=== PATIENT | male | born 1960 | race Two or more races ===

== ENCOUNTER → 2020-01-10 07:11 | Outpatient (CLI) | payer OTHER ==
[~2020-01-10 07:11] MED LIST: CIPRO500 MG PO; GLIPIZIDE5 MG; JANUVIA100 MG; VASOTEC2.5 MG
== END | disposition home or self-care (01) ==
LOC: LAB 07:11
PROVIDERS: ATTEND Internal Medicine Hematology & Oncology
DX: D55.0 Anemia due to glucose-6-phosphate dehydrogenase [G6PD] deficiency (principal); D50.8 Other iron deficiency anemias; D51.1 Vitamin B12 deficiency anemia due to selective vitamin B12 malabsorption with proteinuria; D51.0 Vitamin B12 deficiency anemia due to intrinsic factor deficiency; E06.3 Autoimmune thyroiditis; R97.0 Elevated carcinoembryonic antigen [CEA]; R97.8 Other abnormal tumor markers; R97.20 Elevated prostate specific antigen [PSA]; B20 Human immunodeficiency virus [HIV] disease; B17.8 Other specified acute viral hepatitis; Z11.59 Encounter for screening for other viral diseases; D69.49 Other primary thrombocytopenia; M06.89 Other specified rheumatoid arthritis, multiple sites; I10 Essential (primary) hypertension; E11.9 Type 2 diabetes mellitus without complications; D51.3 Other dietary vitamin B12 deficiency anemia

== ENCOUNTER 2020-04-24 07:22 | Outpatient (CLI) | payer OTHER | END 2020-04-24 15:00 | disposition home or self-care (01) | LOC: LAB 07:22 | PROVIDERS: ATTEND Internal Medicine Hematology & Oncology | DX: D50.8 Other iron deficiency anemias (principal); I10 Essential (primary) hypertension; D51.8 Other vitamin B12 deficiency anemias; R97.0 Elevated carcinoembryonic antigen [CEA]; R97.8 Other abnormal tumor markers; D51.0 Vitamin B12 deficiency anemia due to intrinsic factor deficiency; D57.3 Sickle-cell trait; D51.1 Vitamin B12 deficiency anemia due to selective vitamin B12 malabsorption with proteinuria; E11.9 Type 2 diabetes mellitus without complications; M06.89 Other specified rheumatoid arthritis, multiple sites; D69.49 Other primary thrombocytopenia ==

== ENCOUNTER → 2020-06-26 07:08 | Outpatient (CLI) | payer OTHER | END | disposition home or self-care (01) | LOC: LAB 07:08 | PROVIDERS: ATTEND Internal Medicine Hematology & Oncology | DX: D50.8 Other iron deficiency anemias (principal); D51.0 Vitamin B12 deficiency anemia due to intrinsic factor deficiency; I10 Essential (primary) hypertension; D51.1 Vitamin B12 deficiency anemia due to selective vitamin B12 malabsorption with proteinuria; D57.3 Sickle-cell trait; D69.6 Thrombocytopenia, unspecified; M06.9 Rheumatoid arthritis, unspecified; E11.9 Type 2 diabetes mellitus without complications ==

== ENCOUNTER → 2020-07-24 07:47 | Outpatient (CLI) | payer OTHER | END | disposition home or self-care (01) | LOC: LAB 07:47 | PROVIDERS: ATTEND Internal Medicine Geriatric Medicine | DX: D50.8 Other iron deficiency anemias (principal); E03.8 Other specified hypothyroidism; I11.9 Hypertensive heart disease without heart failure; E56.8 Deficiency of other vitamins; N39.0 Urinary tract infection, site not specified; Z12.11 Encounter for screening for malignant neoplasm of colon; E55.9 Vitamin D deficiency, unspecified; N19 Unspecified kidney failure; R80.8 Other proteinuria; C18.0 Malignant neoplasm of cecum; K92.1 Melena; I10 Essential (primary) hypertension; E11.65 Type 2 diabetes mellitus with hyperglycemia; E78.49 Other hyperlipidemia; N40.0 Benign prostatic hyperplasia without lower urinary tract symptoms; R35.8 Other polyuria ==

== ENCOUNTER 2020-10-23 08:11 | Outpatient (CLI) | payer OTHER | END 2020-10-23 08:20 | disposition home or self-care (01) | LOC: LAB 08:11 | PROVIDERS: ATTEND Internal Medicine Hematology & Oncology | DX: I10 Essential (primary) hypertension (principal); R74.02 Elevation of levels of lactic acid dehydrogenase [LDH]; K76.89 Other specified diseases of liver; D50.8 Other iron deficiency anemias; R97.0 Elevated carcinoembryonic antigen [CEA]; R97.8 Other abnormal tumor markers; D51.1 Vitamin B12 deficiency anemia due to selective vitamin B12 malabsorption with proteinuria; D51.0 Vitamin B12 deficiency anemia due to intrinsic factor deficiency; D57.3 Sickle-cell trait; D69.6 Thrombocytopenia, unspecified; E11.9 Type 2 diabetes mellitus without complications; R79.89 Other specified abnormal findings of blood chemistry; C25.7 Malignant neoplasm of other parts of pancreas; E03.8 Other specified hypothyroidism ==

== ENCOUNTER 2021-03-26 07:55 | Outpatient (CLI) | payer OTHER | END 2021-03-26 08:09 | disposition home or self-care (01) | LOC: LAB 07:55 | PROVIDERS: ATTEND Internal Medicine Hematology & Oncology | DX: D50.8 Other iron deficiency anemias (principal); R79.89 Other specified abnormal findings of blood chemistry; I10 Essential (primary) hypertension; R74.02 Elevation of levels of lactic acid dehydrogenase [LDH]; K76.89 Other specified diseases of liver; E03.8 Other specified hypothyroidism; C25.9 Malignant neoplasm of pancreas, unspecified; R97.8 Other abnormal tumor markers; R97.0 Elevated carcinoembryonic antigen [CEA]; E55.9 Vitamin D deficiency, unspecified; D51.0 Vitamin B12 deficiency anemia due to intrinsic factor deficiency; D51.1 Vitamin B12 deficiency anemia due to selective vitamin B12 malabsorption with proteinuria; D57.3 Sickle-cell trait; D69.6 Thrombocytopenia, unspecified; M06.9 Rheumatoid arthritis, unspecified; E11.9 Type 2 diabetes mellitus without complications ==

== ENCOUNTER 2021-09-10 07:28 | Outpatient (CLI) | payer OTHER | END 2021-09-10 07:39 | disposition home or self-care (01) | LOC: LAB 07:28 | PROVIDERS: ATTEND Internal Medicine Hematology & Oncology | DX: D50.8 Other iron deficiency anemias (principal); R79.89 Other specified abnormal findings of blood chemistry; I10 Essential (primary) hypertension; R74.02 Elevation of levels of lactic acid dehydrogenase [LDH]; K76.89 Other specified diseases of liver; E55.9 Vitamin D deficiency, unspecified; E03.8 Other specified hypothyroidism; R97.0 Elevated carcinoembryonic antigen [CEA]; R97.8 Other abnormal tumor markers; R97.20 Elevated prostate specific antigen [PSA]; D51.0 Vitamin B12 deficiency anemia due to intrinsic factor deficiency; D51.1 Vitamin B12 deficiency anemia due to selective vitamin B12 malabsorption with proteinuria; D57.3 Sickle-cell trait; D69.49 Other primary thrombocytopenia; E11.9 Type 2 diabetes mellitus without complications ==

== ENCOUNTER 2022-01-07 07:04 | Outpatient (CLI) | payer OTHER | END 2022-01-07 07:21 | disposition home or self-care (01) | LOC: LAB 07:04 | PROVIDERS: ATTEND Internal Medicine Hematology & Oncology | DX: D50.8 Other iron deficiency anemias (principal); R79.9 Abnormal finding of blood chemistry, unspecified; I10 Essential (primary) hypertension; R74.02 Elevation of levels of lactic acid dehydrogenase [LDH]; K76.89 Other specified diseases of liver; E55.9 Vitamin D deficiency, unspecified; E03.8 Other specified hypothyroidism; R97.0 Elevated carcinoembryonic antigen [CEA]; R97.8 Other abnormal tumor markers; R97.20 Elevated prostate specific antigen [PSA]; E21.0 Primary hyperparathyroidism; E83.52 Hypercalcemia ==

== ENCOUNTER 2022-04-28 06:48 | Outpatient (CLI) | payer OTHER | END 2022-04-28 06:55 | disposition home or self-care (01) | LOC: LAB 06:48 | PROVIDERS: ATTEND Internal Medicine Hematology & Oncology | DX: D50.8 Other iron deficiency anemias (principal); R79.9 Abnormal finding of blood chemistry, unspecified; I10 Essential (primary) hypertension; R74.02 Elevation of levels of lactic acid dehydrogenase [LDH]; K76.89 Other specified diseases of liver; R97.0 Elevated carcinoembryonic antigen [CEA]; R97.20 Elevated prostate specific antigen [PSA] ==

== ENCOUNTER → 2023-03-17 07:19 | Outpatient (CLI) | payer OTHER | END | disposition home or self-care (01) | LOC: LAB 07:19 | PROVIDERS: ATTEND Internal Medicine Hematology & Oncology | DX: D50.8 Other iron deficiency anemias (principal); R79.9 Abnormal finding of blood chemistry, unspecified; I10 Essential (primary) hypertension; R74.02 Elevation of levels of lactic acid dehydrogenase [LDH]; K76.89 Other specified diseases of liver; E55.9 Vitamin D deficiency, unspecified; R97.0 Elevated carcinoembryonic antigen [CEA]; R97.8 Other abnormal tumor markers; R97.20 Elevated prostate specific antigen [PSA]; C61 Malignant neoplasm of prostate; D51.0 Vitamin B12 deficiency anemia due to intrinsic factor deficiency; D51.1 Vitamin B12 deficiency anemia due to selective vitamin B12 malabsorption with proteinuria; D57.3 Sickle-cell trait; D69.6 Thrombocytopenia, unspecified; M06.9 Rheumatoid arthritis, unspecified; E11.9 Type 2 diabetes mellitus without complications ==

== ENCOUNTER 2023-11-24 07:51 | Outpatient (CLI) | payer OTHER ==
[2023-11-24 09:46] LABS: PH,URINE 6.5 (5.0-8.0); URINE APPEARANCE Clear; URINE BILIRRUBIN Negative (NEGATIVE); URINE BLOOD Negative; URINE COLOR Yellow; URINE GLUCOSE Negative (NEGATIVE); URINE LEUKOCYTE Negative; URINE NITRATE Negative; URINE PROTEIN Negative (NEGATIVE); URINE UROBILINOGEN 0.2 E.U./dl
[2023-11-24 09:50] LABS: URINE RBC 2.1 uL (0.0-20.8); URINE WBC 2.6 uL (0.0-23.2)
[2023-11-24 09:59] LABS: HEMATOCRIT 39.8 % (39.0-48.0); HEMOGLOBIN 13.3 g/dL (13-16.00); MEAN CELL VOLUME 89.5 fL (80.0-100.00); MEAN CORPUSCULAR HEMOGLOBIN 29.9 pg (27.00-32.0); MEAN CORPUSCULAR HGB CONC 33.4 g/dl (32.0-36.0); PLATELET COUNT 150 K/uL (150-450); RED BLOOD COUNT 4.45 M/uL (4.00-6.00); RED CELL DISTRIBUTION WIDTH 14.1 % (11.5-14.5)
[2023-11-24 10:05] LABS: URINE BACTERIA 3.7 uL (0.0-1933); URINE EPITHELIAL CELLS 0.4 uL (0.0-38.8)
[2023-11-24 10:36] LABS: ALBUMIN 4.3 gm/dL (3.4-5.0); ALKALINE PHOSPHATASE 77 U/L (50-136); ALT/SGPT 33 U/L (12-78); ANION GAP 6 (10.0-20.0); AST/SGOT 25 U/L (15-37); BILIRUBIN TOTAL 0.53 mg/dL (0.3-1.2); BLOOD UREA NITROGEN 13 mg/dL (7-18); BUN CREA RATIO 15 (7.0-25.0); CALCIUM 9.6 mg/dL (8.5-10.1); CARBON DIOXIDE 34 mEq/L (21-32); CHLORIDE 108 mmol/L (98-107); CHOL HDL RATIO 1.8 (0-5.0); CHOLESTEROL 113 mg/dL (0-200); CREATININE SERUM 0.84 mg/dL (0.70-1.30); FERRITIN 35.9 NG/ML (26-388); GFR 92.89; GLOBULINA 2.9 G/DL (2.4-3.5); GLUCOSE FASTING 139 mg/dL (65-100); HDL 62 mg/dl (40-60); LDH 224 U/L (87-241); LDL 43 mg/dl (0-130); OSMOLALITY SERUM 289 MOSM/KG (275-295); POTASSIUM 3.88 mEq/L (3.5-5.1); SODIUM 144 mmol/L (136-145); TOTAL IRON BINDING CAPACITY 350 ug/dl (250-450); TOTAL PROTEIN 7.2 gm/dL (6.4-8.2); TRIGLYCERIDES 41 mg/dL (0-150); VLDL 8 (0-39)
[2023-11-24 10:39] LABS: PROSTATIC SPECIFIC ANTIGEN < 0.010 NG/ML (0.010-4.00)
[2023-11-25 12:18] LABS: FOLIC ACID > 20.00 ng/ml (4.78-20); VITAMIN D3 25 HYDROXY 39.79 ng/ml (30-120)
[2023-11-26 11:27] LABS: MANUAL PLATELET COUNT 336
[2023-11-26 11:28] LABS: PLATELET ESTIMATE NORMAL (NORMAL)
== END 2023-11-24 08:08 | disposition home or self-care (01) ==
LOC: LAB 07:51
PROVIDERS: ATTEND Internal Medicine Hematology & Oncology
DX: C61 Malignant neoplasm of prostate (principal); D51.0 Vitamin B12 deficiency anemia due to intrinsic factor deficiency; D51.1 Vitamin B12 deficiency anemia due to selective vitamin B12 malabsorption with proteinuria; D57.3 Sickle-cell trait; D69.6 Thrombocytopenia, unspecified; M06.9 Rheumatoid arthritis, unspecified; I10 Essential (primary) hypertension; E11.9 Type 2 diabetes mellitus without complications; R97.0 Elevated carcinoembryonic antigen [CEA]; E55.9 Vitamin D deficiency, unspecified; R79.9 Abnormal finding of blood chemistry, unspecified; K76.89 Other specified diseases of liver; D50.8 Other iron deficiency anemias

== ENCOUNTER 2024-04-26 07:03 | Outpatient (CLI) | payer OTHER ==
[2024-04-26] MEDS ORDERED: HUMALOG100 UNIT/2 (08:01)
[2024-04-26 08:10] LABS: PH,URINE 5.5 (5.0-8.0); URINE APPEARANCE Clear; URINE BILIRRUBIN Negative (NEGATIVE); URINE BLOOD Negative; URINE COLOR Yellow; URINE GLUCOSE Negative (NEGATIVE); URINE KETONE 15 (NEGATIVE); URINE LEUKOCYTE Negative; URINE NITRATE Negative; URINE PROTEIN Trace (NEGATIVE); URINE UROBILINOGEN 0.2 E.U./dl
[2024-04-26 08:14] LABS: URINE BACTERIA 7.5 uL (0.0-1933); URINE EPITHELIAL CELLS 2.4 uL (0.0-38.8); URINE RBC 2.9 uL (0.0-20.8); URINE WBC 3.3 uL (0.0-23.2)
[2024-04-26 08:24] LABS: HEMATOCRIT 36.5 % (39.0-48.0); HEMOGLOBIN 12.5 g/dL (13-16.00); MEAN CORPUSCULAR HEMOGLOBIN 30.2 pg (27.00-32.0); MEAN CORPUSCULAR HGB CONC 34.3 g/dl (32.0-36.0); PLATELET COUNT 131 K/uL (150-450); RED BLOOD COUNT 4.15 M/uL (4.00-6.00); RED CELL DISTRIBUTION WIDTH 14.2 % (11.5-14.5)
[2024-04-26 09:14] LABS: ALBUMIN 3.9 gm/dL (3.4-5.0); ALKALINE PHOSPHATASE 81 U/L (50-136); ALT/SGPT 24 U/L (12-78); ANION GAP 9 (10.0-20.0); AST/SGOT 13 U/L (15-37); BILIRUBIN TOTAL 0.54 mg/dL (0.3-1.2); BLOOD UREA NITROGEN 13 mg/dL (7-18); BUN CREA RATIO 17 (7.0-25.0); CALCIUM 9.1 mg/dL (8.5-10.1); CARBON DIOXIDE 29 mEq/L (21-32); CHLORIDE 108 mmol/L (98-107); CHOL HDL RATIO 2.3 (0-5.0); CHOLESTEROL 133 mg/dL (0-200); CREATININE SERUM 0.76 mg/dL (0.70-1.30); FERRITIN 57.9 NG/ML (26-388); GFR 104.27; GLOBULINA 3.2 G/DL (2.4-3.5); HDL 58 mg/dl (40-60); LDL 66 mg/dl (0-130); POTASSIUM 4.07 mEq/L (3.5-5.1); SODIUM 142 mmol/L (136-145); TOTAL IRON BINDING CAPACITY 288 ug/dl (250-450); TOTAL PROTEIN 7.1 gm/dL (6.4-8.2); TRIGLYCERIDES 44 mg/dL (0-150); VLDL 8 (0-39)
[2024-04-26 09:15] LABS: GLUCOSE FASTING 207 mg/dL (65-100); OSMOLALITY SERUM 289 MOSM/KG (275-295); PROSTATIC SPECIFIC ANTIGEN < 0.010 NG/ML (0.010-4.00)
[2024-04-28 10:25] LABS: MANUAL PLATELET COUNT 256
[2024-04-28 10:27] LABS: PLATELET ESTIMATE NORMAL (NORMAL)
[2024-04-28 12:17] LABS: FOLIC ACID 19.58 ng/ml (4.78-20); VITAMIN D3 25 HYDROXY 32.72 ng/ml (30-120)
== END 2024-04-26 07:13 | disposition home or self-care (01) ==
LOC: LAB 07:03
PROVIDERS: ATTEND Internal Medicine Hematology & Oncology
DX: D50.9 Iron deficiency anemia, unspecified (principal); E03.9 Hypothyroidism, unspecified; E78.2 Mixed hyperlipidemia; I11.9 Hypertensive heart disease without heart failure; E56.8 Deficiency of other vitamins; N39.0 Urinary tract infection, site not specified; Z12.11 Encounter for screening for malignant neoplasm of colon; R19.5 Other fecal abnormalities; E55.9 Vitamin D deficiency, unspecified; N19 Unspecified kidney failure; E11.9 Type 2 diabetes mellitus without complications; C61 Malignant neoplasm of prostate; D51.0 Vitamin B12 deficiency anemia due to intrinsic factor deficiency; D51.1 Vitamin B12 deficiency anemia due to selective vitamin B12 malabsorption with proteinuria; D57.3 Sickle-cell trait; D69.6 Thrombocytopenia, unspecified; M06.9 Rheumatoid arthritis, unspecified; I10 Essential (primary) hypertension; R97.0 Elevated carcinoembryonic antigen [CEA]; D50.8 Other iron deficiency anemias; R74.02 Elevation of levels of lactic acid dehydrogenase [LDH]; K76.89 Other specified diseases of liver

== ENCOUNTER 2024-04-26 07:51 | Emergency (ER) | payer OTHER ==
[~2024-04-26] VITALS: Ht 185.4 cm; Wt 64.9 kg
[2024-04-26] MEDS ORDERED: HUMALOG100 UNIT/2 (08:01)
== END 2024-04-26 12:37 | disposition home or self-care (01) ==
LOC: ER 07:52
DX: S90.121A Contusion of right lesser toe(s) without damage to nail, initial encounter (principal); X58.XXXA Exposure to other specified factors, initial encounter; Y93.89 Activity, other specified; Y92.89 Other specified places as the place of occurrence of the external cause; Y99.9 Unspecified external cause status; E11.9 Type 2 diabetes mellitus without complications; Z79.4 Long term (current) use of insulin; Z88.0 Allergy status to penicillin; Z85.46 Personal history of malignant neoplasm of prostate

== ENCOUNTER 2024-08-30 17:19 | Emergency (ER) | payer OTHER ==
[~2024-08-30] VITALS: Ht 182.9 cm; Wt 65.3 kg
[~2024-08-30 17:19] MED LIST changes: +HUMALOG100 UNIT/2
[2024-08-30] MEDS ORDERED: LANTUS SOL100 UNIT/1 SQ (18:19)
[2024-08-30 19:48] LABS: HEMOGLOBIN 12.7 g/dL (13-16.00); MEAN CELL VOLUME 89.5 fL (80.0-100.00); MEAN CORPUSCULAR HEMOGLOBIN 29.9 pg (27.00-32.0); MEAN CORPUSCULAR HGB CONC 33.5 g/dl (32.0-36.0); PLATELET COUNT 206 K/uL (150-450); RED BLOOD COUNT 4.25 M/uL (4.00-6.00)
[2024-08-30 20:12] LABS: ALBUMIN 3.7 gm/dL (3.4-5.0); BILIRUBIN TOTAL 0.4 mg/dL (0.3-1.2); CALCIUM 9.3 mg/dL (8.5-10.1); CREATININE SERUM 0.92 mg/dL (0.70-1.30); GFR 83.36; GLOBULINA 3.3 G/DL (2.4-3.5); POTASSIUM 4.99 mEq/L (3.5-5.1)
[2024-08-30] MEDS ORDERED: DEXAMETHASONE SODIUM PHOSPHATE 4 MG/ML VIAL IM STA (20:29)
[2024-08-30] MEDS ORDERED: DEXAMETHASONE SODIUM PHOSPHATE 4 MG/ML VIAL ONE (20:32)
[2024-08-30] MEDS ORDERED: KETOROLAC TROMETHAMINE 60 MG VIAL IM ONE (20:33)
== END 2024-08-30 20:47 ==
LOC: ER 17:21
PROVIDERS: General Practice
DX: E11.649 Type 2 diabetes mellitus with hypoglycemia without coma (principal); Z79.4 Long term (current) use of insulin; I10 Essential (primary) hypertension; Z88.0 Allergy status to penicillin; Z85.46 Personal history of malignant neoplasm of prostate

== ENCOUNTER 2024-12-13 09:30 | Outpatient (CLI) | payer OTHER ==
[~2024-12-13 09:30] MED LIST changes: +LANTUS SOL100 UNIT/1 SQ
[2024-12-13 10:38] LABS: HEMATOCRIT 39.1 % (39.0-48.0); HEMOGLOBIN 12.9 g/dL (13-16.00); MEAN CELL VOLUME 89.9 fL (80.0-100.00); MEAN CORPUSCULAR HEMOGLOBIN 29.8 pg (27.00-32.0); MEAN CORPUSCULAR HGB CONC 33.1 g/dl (32.0-36.0); PLATELET COUNT 156 K/uL (150-450); RED BLOOD COUNT 4.35 M/uL (4.00-6.00); RED CELL DISTRIBUTION WIDTH 13.9 % (11.5-14.5)
[2024-12-13 10:46] LABS: URINE APPEARANCE Clear; URINE BILIRRUBIN Negative (NEGATIVE); URINE BLOOD Negative; URINE COLOR Yellow; URINE GLUCOSE Negative (NEGATIVE); URINE KETONE Negative (NEGATIVE); URINE LEUKOCYTE Negative; URINE NITRATE Negative; URINE PROTEIN Negative (NEGATIVE); URINE UROBILINOGEN 0.2 E.U./dl
[2024-12-13 11:20] LABS: URINE BACTERIA 1.2 uL (0.0-1933); URINE EPITHELIAL CELLS 0.4 uL (0.0-38.8); URINE RBC 1.4 uL (0.0-20.8)
[2024-12-13 11:26] LABS: BILIRUBIN TOTAL 0.48 mg/dL (0.3-1.2); CALCIUM 9.3 mg/dL (8.5-10.1); CHOL HDL RATIO 2.9 (0-5.0); CREATININE SERUM 0.68 mg/dL (0.70-1.30); GFR 118.16; GLOBULINA 2.9 G/DL (2.4-3.5); POTASSIUM 4.71 mEq/L (3.5-5.1); TOTAL PROTEIN 6.9 gm/dL (6.4-8.2); TSH 1.57 uIU/mL (0.358-3.74)
== END 2024-12-13 11:08 | disposition home or self-care (01) ==
LOC: LAB 09:30
PROVIDERS: ATTEND Internal Medicine Geriatric Medicine
DX: D50.9 Iron deficiency anemia, unspecified (principal); E03.9 Hypothyroidism, unspecified; E78.2 Mixed hyperlipidemia; I11.9 Hypertensive heart disease without heart failure; E56.8 Deficiency of other vitamins; N39.0 Urinary tract infection, site not specified; Z12.11 Encounter for screening for malignant neoplasm of colon; R19.5 Other fecal abnormalities; E55.9 Vitamin D deficiency, unspecified; N19 Unspecified kidney failure; E11.9 Type 2 diabetes mellitus without complications

== ENCOUNTER 2025-04-11 07:11 | Outpatient (CLI) | payer OTHER ==
[2025-04-11 08:41] LABS: URINE APPEARANCE Clear; URINE BILIRRUBIN Negative (NEGATIVE); URINE BLOOD Negative; URINE COLOR Yellow; URINE KETONE Negative (NEGATIVE); URINE LEUKOCYTE Negative; URINE NITRATE Negative; URINE PROTEIN Negative (NEGATIVE); URINE UROBILINOGEN 0.2 E.U./dl
[2025-04-11 09:07] LABS: URINE BACTERIA 2.3 uL (0.0-1933); URINE CAST 0.00 uL (0.0-1.40); URINE EPITHELIAL CELLS 0.7 uL (0.0-38.8); URINE GLUCOSE 500 MG/DL (NEGATIVE); URINE RBC 0.8 uL (0.0-20.8); URINE WBC 1.0 uL (0.0-23.2)
[2025-04-11 09:29] LABS: BASO % 0.5 % (0.1-1.2); EOS # 0.23 (0.04-0.54); EOS % 4.1 % (0.7-7.0); LYMPH # 1.27 (1.18-3.74); LYMPH % 22.4 % (19.3-53.1); MEAN PLATELET VOLUME 11.60 fl (9.4-12.4); MONO # 0.63 (0.24-0.82); MONO % 11.1 % (4.7-12.5); NEUT # 3.49 (1.56-6.13); NEUT % 61.7 % (34.0-71.1); RED CELL DISTRIBUTION WIDTH 13.2 % (11.6-14.4)
[2025-04-11 09:50] LABS: ALT/SGPT 24.0 U/L (12-78); AST/SGOT 16.0 U/L (15-37); BILIRUBIN TOTAL 0.37 mg/dL (0.3-1.2); BUN CREA RATIO 17.0 (7.0-25.0); CHOL HDL RATIO 1.7 (0-5.0); CREATININE SERUM 0.78 mg/dL (0.70-1.30); GFR 100.85; GLOBULINA 2.8 G/DL (2.4-3.5); HDL 52.0 mg/dl (40-60); LDL 29.0 mg/dl (0-130); OSMOLALITY SERUM 289.0 MOSM/KG (275-295); TSH 0.975 uIU/mL (0.358-3.74); VLDL 8.0 (0-39)
[2025-04-11 09:59] LABS: GLUCOSE FASTING 235.0 mg/dL (65-100)
== END 2025-04-11 07:21 | disposition home or self-care (01) ==
LOC: LAB 07:11
PROVIDERS: ATTEND Internal Medicine
DX: E11.65 Type 2 diabetes mellitus with hyperglycemia (principal); E78.5 Hyperlipidemia, unspecified; E03.8 Other specified hypothyroidism; I10 Essential (primary) hypertension

== ENCOUNTER 2025-05-15 06:08 | Outpatient (CLI) | payer OTHER ==
[2025-05-15 07:49] LABS: URINE APPEARANCE Clear; URINE BILIRRUBIN Negative (NEGATIVE); URINE BLOOD Negative; URINE COLOR Yellow; URINE GLUCOSE Negative (NEGATIVE); URINE KETONE Negative (NEGATIVE); URINE LEUKOCYTE Negative; URINE NITRATE Negative; URINE PROTEIN Negative (NEGATIVE); URINE UROBILINOGEN 0.2 E.U./dl
[2025-05-15 07:51] LABS: URINE RBC 2.9 uL (0.0-20.8)
[2025-05-15 08:05] LABS: BASO % 0.8 % (0.1-1.2); EOS # 0.16 (0.04-0.54); EOS % 3.3 % (0.7-7.0); LYMPH # 1.12 (1.18-3.74); LYMPH % 23.4 % (19.3-53.1); MEAN PLATELET VOLUME 11.20 fl (9.4-12.4); MONO # 0.46 (0.24-0.82); MONO % 9.6 % (4.7-12.5); NEUT # 2.98 (1.56-6.13); NEUT % 62.5 % (34.0-71.1); RED CELL DISTRIBUTION WIDTH 12.8 % (11.6-14.4)
[2025-05-15 08:15] LABS: URINE BACTERIA 2.3 uL (0.0-1933); URINE CAST 0.00 uL (0.0-1.40); URINE EPITHELIAL CELLS 1.2 uL (0.0-38.8); URINE WBC 1.3 uL (0.0-23.2)
[2025-05-15 08:41] LABS: ob NEGATIVE (NEGATIVE)
[2025-05-15 09:01] LABS: ALT/SGPT 27 U/L (12-78); AST/SGOT 16 U/L (15-37); BILIRUBIN TOTAL 0.55 mg/dL (0.3-1.2); BUN CREA RATIO 17 (7.0-25.0); CHOL HDL RATIO 1.9 (0-5.0); CREATININE SERUM 0.77 mg/dL (0.70-1.30); GFR 102.37; GLOBULINA 2.8 G/DL (2.4-3.5); GLUCOSE FASTING 153 mg/dL (65-100); HDL 51 mg/dl (40-60); LDH 184 U/L (87-241); LDL 37 mg/dl (0-130); OSMOLALITY SERUM 288 MOSM/KG (275-295); VLDL 8 (0-39)
[2025-05-15 09:23] LABS: FE 103.0 ug/dl (65-175); TSH 1.360 uIU/mL (0.358-3.74)
[2025-05-15 09:25] LABS: PROSTATIC SPECIFIC ANTIGEN < 0.010 NG/ML (0.010-4.00)
[2025-05-15 09:55] LABS: FOLIC ACID > 20.00 ng/ml (4.78-20); VITAMIN D3 25 HYDROXY 29.76 ng/ml (30-120)
== END 2025-05-15 06:11 | disposition home or self-care (01) ==
LOC: LAB 06:08
PROVIDERS: ATTEND Internal Medicine Hematology & Oncology
DX: C61 Malignant neoplasm of prostate (principal); D51.0 Vitamin B12 deficiency anemia due to intrinsic factor deficiency; D51.1 Vitamin B12 deficiency anemia due to selective vitamin B12 malabsorption with proteinuria; D57.3 Sickle-cell trait; D69.6 Thrombocytopenia, unspecified; M06.9 Rheumatoid arthritis, unspecified; I10 Essential (primary) hypertension; E11.9 Type 2 diabetes mellitus without complications; R97.0 Elevated carcinoembryonic antigen [CEA]; D50.8 Other iron deficiency anemias; R79.9 Abnormal finding of blood chemistry, unspecified; E55.9 Vitamin D deficiency, unspecified; D50.9 Iron deficiency anemia, unspecified; E03.9 Hypothyroidism, unspecified; E78.2 Mixed hyperlipidemia; I11.9 Hypertensive heart disease without heart failure; E56.8 Deficiency of other vitamins; Z12.11 Encounter for screening for malignant neoplasm of colon; R19.5 Other fecal abnormalities; N19 Unspecified kidney failure; R80.9 Proteinuria, unspecified; K92.1 Melena; Z12.5 Encounter for screening for malignant neoplasm of prostate